=== PATIENT | female | born 1980 | race African-American/Black ===

== ENCOUNTER 2018-01-08 10:29 | Inpatient (IN) | payer SELFPAY ==
[~2018-01-08] VITALS: Ht 167.6 cm; Wt 80.6 kg
[2018-01-08] VITALS (7 sets, daily range): BP systolic 105–120; BP diastolic 55–75; PULSE 59–100; TEMP 97.5–98.5
[2018-01-08 11:15] LABS: BASO % 0.6 % (0.0-2.0); EOS # 0.2 (0.0-0.7); GRAN % 59.7 % (42.2-75.2); HEMATOCRIT 38.6 % (37.0-47.0); HEMOGLOBIN 12.4 g/dl (12.5-16.0); LYMPH # 1.4 (1.2-3.4); LYMPH % 27.7 % (20.0-51.0); MEAN CELL VOLUME 81 fl (80.0-100.0); MEAN CORPUSCULAR HEMOGLOBIN 26 pg (27.0-31.0); MEAN CORPUSCULAR HGB CONC 32 g/dl (33.0-37.0); MEAN PLATELET VOLUME 10.9 fl (7.4-10.4); MONO # 0.4 (0.1-0.6); PLATELET COUNT 233 K/mm3 (130-400); RED BLOOD COUNT 4.79 M/mm3 (4.10-5.30); REDCELL DISTRIBUTION WIDTH-CV 14.6 % (11.5-14.5)
[2018-01-08] MEDS ORDERED: BUSPAR10 MG PO (11:15)
[2018-01-08] MEDS ORDERED: PAXIL 20MG20 MG PO (11:15)
[2018-01-08 11:33] LABS: ALBUMIN 4.5 gm/dL (3.5-5.0); BILIRUBIN,TOTAL 0.4 mg/dL (0.0-1.0); CALCIUM 9.2 mg/dL (8.4-10.2); CREATININE, serum 0.66 mg/dL (0.52-1.25); POTASSIUM 3.9 mmol/L (3.4-5.0)
[2018-01-08] MEDS ORDERED: MOTRIN 800800 MG/TAB PO (13:53)
[2018-01-08] MEDS ORDERED: PERCOCET 325 MG1 TA2 PO (13:53)
[2018-01-08 14:26] LABS: COLLECTION METHOD CLEAN CATCH
[2018-01-08 14:34] LABS: MUCOUS Present /lpf; PH 5 (5-8); URINE APPEARANCE Hazy; URINE BACTERIA Rare /hpf; URINE BILIRUBIN Negative (NEGATIVE); URINE BLOOD 1+ (NEGATIVE); URINE COLOR Yellow; URINE GLUCOSE Negative (NEGATIVE); URINE KETONE Negative (NEGATIVE); URINE LEUKOCYTE ESTERASE 2+ (NEGATIVE); URINE NITRATE Negative (NEGATIVE); URINE PROTEIN(semi-quant) Negative (NEGATIVE); URINE UROBILINOGEN Negative (NEGATIVE)
[2018-01-09 05:27] VITALS: BP 90/51; PULSE 74; TEMP 98.2
== END 2018-01-09 09:45 | disposition home or self-care (01) | DRG 742 ==
LOC: COL.ER 10:29 → SURG 13:00
PROVIDERS: Nurse Practitioner; Obstetrics & Gynecology
PROC: 0UT00ZZ Resection of Right Ovary, Open Approach (ICD-10-PCS; principal; 2018-01-08 15:05)
PROC: 0UB50ZZ Excision of Right Fallopian Tube, Open Approach (ICD-10-PCS; 2018-01-08 15:05)
PROC: 0U910ZZ Drainage of Left Ovary, Open Approach (ICD-10-PCS; 2018-01-08 15:05)
DX: D27.0 Benign neoplasm of right ovary (principal); N83.511 Torsion of right ovary and ovarian pedicle; N83.202 Unspecified ovarian cyst, left side; F17.210 Nicotine dependence, cigarettes, uncomplicated
CPT/HCPCS: A4314; A4315; A9284; J0171; J0690; J1200; J1885; J2270; J2405; J2550; J2704; J3010; J7030; Q9967